=== PATIENT | female | born 1990 | race Hispanic/Latino ===

== ENCOUNTER 2017-07-27 22:41 | Emergency (ER) | payer SELFPAY ==
[2017-07-27] MEDS ORDERED: ceFAZolin 1 GM in Sodium Chloride 0.9% 100 ML IVPB STA (22:54)
--- NOTE | 2017-07-27 23:51 | ED PDOC ---
HPI: Psych/Substance Abuse Time Seen by Provider: 07/27/17 22:47 Chief Complaint (Nursing): Psychiatric Evaluation History Per: Patient, EMS Additional Complaint(s): Pt. 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 States that she informed her mom who in turn called the police. Pt. admits to having suicidal thoughts but she does not want to. Pt. states she does not want to be here. Denies HI, hallucinations. As per [place] [employer] pt.'s mother called 911 and states as per mother pt. texted her saying that she wanted to cut herself. Past Medical History Reviewed: Historical Data, Nursing Documentation, Vital Signs Vital Signs: Last Vital Signs Temp 98.4 F 07/27/17 22:43 Pulse 103 H 07/27/17 22:43 Resp 17 07/27/17 22:43 BP 126/83 07/27/17 22:43 Pulse Ox 100 07/27/17 22:43 - Medical History PMH: Depression - Surgical History Other surgeries: "slipped disc surgery" - Family History Family History: States: No Known Family Hx - Allergies Allergies/Adverse Reactions: Allergies Allergy/AdvReac Type Severity Reaction Status Date / Time No Known Allergies Allergy Verified 07/27/17 22:46 Review of Systems ROS Statement: Except As Marked, All Systems Reviewed And Found Negative Psych: Positive for: Depression Physical Exam - Physical Exam Appears: Positive for: Well, Non-toxic, No Acute Distress Skin: Positive for: Normal Color, Warm. Negative for: Rash Eye Exam: Positive for: Normal appearance, EOMI, PERRL ENT: Positive for: Normal ENT Inspection Neck: Positive for: Normal, Painless ROM Cardiovascular/Chest: Positive for: Regular Rate, Rhythm Respiratory: Positive for: Normal Breath Sounds Gastrointestinal/Abdominal: Positive for: Normal Exam, Soft. Negative for: Tenderness Back: Positive for: Normal Inspection Extremity: Positive for: Normal ROM Neurologic/Psych: Positive for: Alert, Oriented, Mood/Affect (crying but cooperative). Negative for: Aphasia, Facial Droop - ECG O2 Sat by Pulse Oximetry: 100 - Progress ED Course And Treament: Crisis eval ordered. Pt. placed on 1:1. Disposition - Clinical Impression Clinical Impression: Depression - Patient ED Disposition Is Patient to be Admitted: Transfer of Care (Signed out to Ganga MADRIGAL pending crisis disposition) - Disposition Disposition: Routine/Home Disposition Time: 00:00 Condition: STABLE
--- NOTE | 2017-07-28 00:49 | ED PDOC ---
- ECG O2 Sat by Pulse Oximetry: 100 - Progress ED Course And Treament: Case endorsed to advertising copy writer from Erick MADRIGAL pending crisis eval 00:45 Patient evaluated by reinforcing metal worker; does not meet criteria for admission at this time as per Dr. Callahan Information given for outpatient follow up. Patient stable for discharge. Return precautions given. Disposition - Clinical Impression Clinical Impression: Depression - POA Present On Arrival: None - Disposition Disposition: Routine/Home Disposition Time: 00:44 Condition: STABLE Instructions: Depression
[2017-07-28 01:01] VITALS: BP 130/78; PULSE 72; TEMP 98
[2017-07-28 01:05] VITALS: O2SAT 100
[2017-07-28 01:29] VITALS: RESP 16
== END 2017-07-28 01:00 | disposition home or self-care (01) ==
LOC: H.ER 22:41
DX: F32.9 Major depressive disorder, single episode, unspecified (principal)